=== PATIENT | female | born 1960 | race Caucasian/White ===

== ENCOUNTER 2024-08-01 20:42 | Emergency (ER) | payer MEDICARE, OTHER, SELFPAY ==
[2024-08-01 20:52] VITALS: BP 138/85; RESP 18; TEMP 35.7; O2SAT 97
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
[2024-08-01] MEDS: 0.9 % SODIUM CHLORIDE 500 ML 500 ML IV (21:46)
[2024-08-01] MEDS: BACITRACIN 0.9 GM PACKET 1 EACH TOPICAL (21:46)
[2024-08-01 22:13] LABS: Chloride* 104 mmol/L (96-114); Sodium* 131 mmol/L (135-149)
[2024-08-01 22:15] LABS: Creatinine* 0.7 mg/dL (0.5-1.5); Estimated Glomerular Filt Rate 95 ml/min
[2024-08-01 22:16] LABS: Anion Gap 7 mEq/L (7-15); Blood Urea Nitrogen* 27 mg/dL (7-30); Calcium* 9.1 mg/dL (8.4-10.6); Carbon Dioxide* 20 mmol/L (20-32); Creatine Kinase* 87 U/L (41-117); Glucose* 244 mg/dL (60-115)
[2024-08-01 22:17] LABS: Magnesium* 1.8 mg/dL (1.5-2.6)
[2024-08-01 22:49] VITALS: BP 116/76; PULSE 74; RESP 18; TEMP 36.4; O2SAT 97
== END 2024-08-01 23:26 | disposition home or self-care (01) ==
PROVIDERS: Emergency Provider Family Medicine; PCP Student in an Organized Health Care Education/Training Program
DX: M25.552 Pain in left hip (principal); S80.211A Abrasion, right knee, initial encounter; V19.3XXA Pedal cyclist (driver) (passenger) injured in unspecified nontraffic accident, initial encounter
CPT/HCPCS: 36415; 73502; 80048; 82550; 83605; 83735; 99284; A9270; J7030

== ENCOUNTER 2025-03-29 13:00 | Outpatient (RCR) | payer MEDICARE, OTHER, SELFPAY | END 2025-07-27 23:59 | disposition home or self-care (01) | PROVIDERS: PCP Student in an Organized Health Care Education/Training Program; Visit Provider Student in an Organized Health Care Education/Training Program | DX: M76.31 Iliotibial band syndrome, right leg (principal); M79.651 Pain in right thigh; M79.652 Pain in left thigh; Z51.89 Encounter for other specified aftercare | CPT/HCPCS: 97110; 97112; 97161 ==